=== PATIENT | female | born 1960 | race Hispanic/Latino ===

== ENCOUNTER → 2022-06-08 | Outpatient (CLI) | payer BC | END | disposition home or self-care (01) | LOC: RAH 07:57 | PROVIDERS: ATTEND Orthopaedic Surgery | DX: M51.36 Other intervertebral disc degeneration, lumbar region (principal); M48.062 Spinal stenosis, lumbar region with neurogenic claudication; M50.31 Other cervical disc degeneration, high cervical region | CPT/HCPCS: 72148 ==